=== PATIENT | male | born 1945 | race Caucasian/White ===

== ENCOUNTER 2017-02-26 11:50 | Inpatient (IN) ==
--- NOTE | 2017-02-26 14:07 | Diag Imaging Result Doc PS360 ---
EXAM: CHEST-1 VIEW HISTORY: weakness TECHNIQUE: COMPARISON: 09/15/2013. FINDINGS: There are sternal wires on the current exam. The right hemidiaphragm is elevated. The heart is not enlarged. The vessels are not distended. No pleural effusions identified. No pneumonia. IMPRESSION: Negative exam. Electronically signed by Elian Wade 02/26/2017 2:05 PM
--- NOTE | 2017-02-26 14:17 | PROVIDER DOCUMENTATION ---
This chart was entered by Alexandra Powell Scribe, acting as scribe for Lsis Bell MD. HPI-General Adult - General Chief Complaint: General Adult Stated Complaint: RECHECK Time Seen by Provider: 02/26/17 12:06 Source: patient, family () Allergies/Adverse Reactions: Patient Allergies Allergy/AdvReac Type Severity Reaction Status Date / Time Corticosteroids Allergy Intermediate increase Verified 01/15/17 08:03 (Glucocorticoids) pressure in eyes Home Medications: Home Medication List Medication Instructions Recorded Confirmed Last Taken Type Trazodone [Desyrel] 50 mg PO QHS 12/14/12 02/26/17 01/10/17 21:00 History Acarbose 50 mg PO TID 01/11/17 02/26/17 02/25/17 History Amlodipine Besylate/Benazepril 1 each PO DAILY 01/11/17 02/26/17 02/25/17 History [Amlodipine-Benazepril 10-40 mg] Aspirin 81 mg PO DAILY 01/11/17 01/11/17 02/25/17 History Brimonidine/Timolol Ophth Soln 1 drop BOTH EYES BID 01/11/17 02/26/17 02/26/17 09:00 History [Combigan Ophth Soln] Clopidogrel Bisulfate [Plavix] 75 mg PO DAILY 01/11/17 02/26/17 02/25/17 History Fluoxetine [Prozac] 20 mg PO DAILY 01/11/17 02/26/17 02/25/17 History Fluticasone 50 Mcg Nasal [place] 1 spray SEAN DAILY 01/11/17 02/26/17 02/25/17 History [Flonase] Gemfibrozil 600 mg PO BID 01/11/17 02/26/17 01/11/17 06:15 History Hydrochlorothiazide 25 mg PO DAILY 01/11/17 01/11/17 02/25/17 History Lorazepam [Ativan] 0.5 mg PO BID PRN 01/11/17 02/26/17 01/10/17 21:00 History Metformin [Glucophage] 1,000 mg PO BID CC #0 01/11/17 02/26/17 02/26/17 08:00 Rx Omeprazole [Prilosec] 40 mg PO DAILY 0502/26/17 02/25/17 History Phenylephrine HCl/Acetaminophn 1 each PO DAILY PRN PRN 01/11/17 01/11/17 History [Vicks Sinex Daytime Liquicap] Potassium Chloride 20 meq PO DAILY 01/11/17 01/11/17 02/25/17 History Tamsulosin HCl 0.4 mg PO QHS 01/11/17 02/26/17 01/10/17 21:00 History Amiodarone [Cordarone] 200 mg PO BID 02/26/17 02/26/17 Unknown History Hydrocodone/Acetaminophen 1 tab PO Q4H PRN PRN 02/26/17 02/26/17 Unknown History [Hydrocodon-Acetaminophen 5-325] Metoprolol Succinate 50 mg PO DAILY 02/26/17 02/26/17 Unknown History Simvastatin 20 mg PO HS 02/26/17 02/26/17 Unknown History Zolpidem Tartrate 5 mg PO HS PRN PRN 02/26/17 02/26/17 Unknown History - History of Present Illness -Gen Adult Nature of Presenting Problems: Pt is 71 y/o M presents to the ED with for rehab/[facility] request. Pt' s states Pt had open heart surgery February 14. Pt's states she took Pt home after 7 days in rehab and states she can not take care of Pt. Pt denies pain or symptoms. Location of Pain/Injury: reports: none Pain Radiation: reports: no radiation Quality of Pain: reports: none Severity: reports: mild Onset/Duration: reports: unsure Timing: reports: still present Context/Activities at Onset: reports: light activity Modifying Factors: improves with: nothing Associated Symptoms: reports: denies symptoms Similar Symptoms Previously?: Yes Recently seen or treated by another doctor?: No Review of Systems - Adult - REVIEW OF SYSTEMS - ADULT Constitutional: reports: no symptoms reported Eyes: reports: no symptoms reported Ears, Nose, Mouth & Throat: reports: no symptoms reported Cardiovascular: reports: no symptoms reported Respiratory: reports: no symptoms reported Gastrointestinal: reports: no symptoms reported Genitourinary: reports: no symptoms reported Musculoskeletal: reports: no symptoms reported Integumentary: reports: no symptoms reported Neurological: reports: no symptoms reported Psychiatric: reports: no symptoms reported Endocrine: reports: no symptoms reported Hematologic/Lymphatic: reports: no symptoms reported Allergic/Immunologic: reports: no symptoms reported All Other Systems: Reviewed and Negative Past History - Adult - PAST MEDICAL HISTORY-ADULT Review of Records: reports: Nursing Assessment Review, Medications Reviewed, Social history reviewed & non-contributory. 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) Endocrine/Immune: reports: Diabetes Other Conditions: reports: denies history - PRIOR SURGERIES/PROCEDURES Surgical/Procedure History: reports: reviewed, not pertinent - IMMUNIZATION STATUS Childhood Immunizations: See Nurse Assessment Flu Vaccine: See Nurse Assessment - FAMILY HISTORY Family History: reviewed, not pertinent - SOCIAL HISTORY Smoking: denies Substance Use: denies Physical Exam-General - PHYSICAL EXAM-ADULT Initial Vital Signs Reviewed: Yes - CONSTITUTIONAL General Appearance: appears well, alert, no apparent distress - EYES Eyes: PERRL/EOMI, pink conjunctivae - HEAD, EARS, NOSE, MOUTH & THROAT HENMT: normocephalic/atraumatic, moist mucous membranes, normal ENT inspection - NECK Neck: normal inspection - RESPIRATORY Respiratory: chest non-tender, lungs clear, normal breath sounds - CARDIOVASCULAR Cardiovascular: normal peripheral pulses, regular rate, rhythm - GASTROINTESTINAL (ABDOMEN) Abdominal Exam: normal bowel sounds, non tender, soft - LYMPHATIC Lymphatic: no adenopathy - MUSCULOSKELETAL Back Exam: normal inspection Extremity: normal range of motion, normal inspection - SKIN Integumentary: normal color, normal turgor, warm/dry - NEUROLOGIC Neurologic: grossly normal - PSYCHIATRIC Psych/Mental Status: normal mood/affect, oriented x 3 Progress - PLAN OF CARE/RESULTS Progress/Plan/Lab Results: Vital Signs - 8 hr 02/26/17 11:58 Temperature 98.6 F Pulse Rate 57 L Respiratory Rate 16 Blood Pressure 93/62 O2 Sat by Pulse Oximetry 100 Result Diagrams: 02/28/17 06:10 02/28/17 06:10 - XRAY 1 XRAY Study: Chest Impression: Normal XRAY Interpretation: negative exam - CONSULTS/PCP/HOSPITALIST Notification #1 *Consult/PCP/Hospitalist*: Dr. Mahmood Time Discussed: 13:47 Reason/Comments: Dr. Bell consults with Dr. Mahmood about Pt Consult Disposition: Admit #2 Consult: Dr. Mahmood Time Discussed: 15:47 Reason/Comments: Dr. Bell consulted with Dr. Mahmood about Pt Consult Disposition: other Departure - Departure Date of Disposition Decision: 02/26/17 Time of Disposition Decision: 13:49 DIAGNOSIS: UTI (urinary tract infection) Qualifiers: Urinary tract infection type: acute cystitis Hematuria presence: without hematuria Qualified Code(s): N30.00 - Acute cystitis without hematuria Disposition: ADMITTED INPATIENT 09 Certified Medical Emergency: Emergent Condition: Stable - Critical Care Note This patient required my direct & personal management of CC.: No This chart was documented by the indicated scribe, (Alexandra Powell Scribe) and accurately reflects the services I performed and decisions made by me, Liss Bell MD, as attested by the provider's signature.
[2017-02-26 14:49] LABS: BASO% 0.8 % (0.0-0.8); EOS% 12.3 % (0.0-10.0); HEMATOCRIT 37.1 % (42.0-52.0); HEMOGLOBIN 12.3 g/dL (14.0-18.0); IMM GRAN# 0.02 X1000 (0.0-0.04); IMM GRAN% 0.4 % (0.0-0.5); LYMPH# 0.85 X1000 (1.2-3.4); LYMPH% 17.4 % (20.5-51.1); MANUAL DIFF NEEDED? NO; MCH 31.2 PG (27-31); MCHC 33.2 g/dL (33-37); MCV 94.2 FL (81-99); MONO# 0.57 X1000 (0.11-0.59); MONO% 11.7 % (1.7-9.3); MPV 11.7 FL (7.4-10.4); NEUT% 57.4 % (42.2-75.2); PLT 282 X1000 (130-400); RBC 3.94 XMIL (4.7-6.1)
[2017-02-26 14:55] LABS: AGAP 17; ALBUMIN 3.7 g/dL (3.5-5.0); ALKALINE PHOSPHATASE 73 U/L (32-122); BUN 19 mg/dL (8-22); CHLORIDE 97 mmol/L (98-107); COSMO 273; GOT 18 U/L (10-34); GPT 10 U/L (10-44); POTASSIUM 4.1 mmol/L (3.5-5.1); SODIUM 134 mmol/L (136-145); TCO2 20 mmol/L (25-35); TOTAL BILIRUBIN 0.47 mg/dL (0.20-1.00); TOTAL PROTEIN 6.6 g/dL (6.3-8.3)
[2017-02-26 15:20] LABS: URINE MICRO REVIEW NEEDED? NO; URINE SOURCE CLEAN CATCH
[2017-02-26 15:36] LABS: BILIRUBIN URINE NEGATIVE (NEGATIVE); BLOOD URINE NEGATIVE (NEGATIVE); COLOR YELLOW; GLUCOSE URINE NEGATIVE (NEGATIVE); LEUKOCYTES URINE MODERATE (NEGATIVE); NITRITE URINE NEGATIVE (NEGATIVE); PROTEIN URINE TRACE mg/dL (NEGATIVE); SP GRAVITY URINE 1.016; TURBIDITY URINE CLEAR (CLEAR); UROBILINOGEN URINE 3 mg/dL (NORMAL)
[2017-02-26 15:37] LABS: UR EPITHELIAL CELLS <10 /HPF (<10); URINE BACTERIA 4+ /HPF; URINE RBC <10 /HPF (<10); URINE WBC TNTC /HPF (<10)
[2017-02-26] MEDS ORDERED: LEVAQUIN 500 MG/D5W 500 MG/100 ML IVPB IV SCH (17:45)
--- NOTE | 2017-02-26 18:24 | HISTORY AND PHYSICAL ---
CHIEF COMPLAINT: Weakness. HISTORY OF PRESENT ILLNESS: A 71-year-old, gentleman, who recently had a CABG done. The patient went to [facility] for rehab. The patient went home yesterday. The patient claims he cannot take care of himself. He was not able to read well, he was feeling weak and cannot read his medication and cannot take his medication right away and his sister cannot help. The patient had some chills, urinary frequency, dysuria, and weakness. The patient came to the emergency room. Evaluated by ER physician. Workup in the ER. His urinalysis did reveal significant UTI. He had 4+ bacteria, too numerous to count WBC, and moderate leukocyte. The patient was symptomatic and we decided to admit the patient for further care. The patient's blood pressure was low. He also wanted to consider going back to the rehab. The patient denied any typical chest pain. Occasional chest soreness. He did have chills but no high-grade fever. The patient does have a problem with vision much more. 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 No runny nose, stuffy nose, sinus drainage. Mild scratchy throat. Mild cough. No expectoration or hemoptysis. He denied any abdominal pain, nausea, vomiting. Occasional constipation. No blood or mucus in the stool. At times, polyuria, polydipsia. Complaining of burning pain in the feet. The patient does have generalized weakness. No focal weakness. No further history available at this time. ALLERGIES: Glucocorticoids. MEDICATION: Includes: Precose, Lotrel, aspirin, Combigan eye drops, Plavix, Prozac, Flonase nose spray, Lopid, hydrochlorothiazide, Ativan, Glucophage, Prilosec, decongestant medicine, potassium, Flomax, trazodone. PAST MEDICAL HISTORY: Significant for BPH, rhinitis, gastritis and reflux disease, and IDDM, situational anxiety, hypertension, hyperlipidemia, situational depression. PERSONAL HISTORY: Single. Nonsmoker. Denied alcohol or substance abuse. FAMILY HISTORY: Noncontributory. REVIEW OF SYSTEMS: As per HPI. PHYSICAL EXAMINATION: GENERAL: Middle-aged white gentleman in no acute distress. VITAL SIGNS: Blood pressure 100/63, pulse 62, respiration 26, temperature 98.6 degrees. SKIN: Normal turgor. No rash or petechiae. HEENT: Head atraumatic, normocephalic. [place] conjunctivae. Anicteric sclerae. Extraocular muscle movement normal. Fundus cannot be penetrated. Good oral hygiene. No tonsillopharyngeal congestion or exudate. Ears and nose benign. NECK: Supple. No JVD, thyromegaly or lymphadenopathy. CHEST: Bilateral good air entry present. Bibasilar crepitation. Occasional wheezing. CARDIOVASCULAR: S1 and S2 heard. No gallop or thrill. ABDOMEN: Soft, globular. Bowel sounds present. No organomegaly or mass. EXTREMITIES: No cyanosis, clubbing. No acute DVT. RN ON SITE: Alert, awake, able to move all 4 limbs. Wound of recent CABG is healing well. LAB DATA: Hemoglobin 12.3, hematocrit 37.1, WBC count 4.88, platelet count 282,000. Electrolytes were fairly benign. Urinalysis results reviewed. PLAN: Admit the patient. IV fluid. IV antibiotics. Symptomatic care. Close observation. Fall precaution. Continue home medicine. DVT and GI prophylaxis. Overall plan discussed with the patient and he is in agreement. cc: Adrien Mahmood MD
[2017-02-26] MEDS: NS + KCL 20 MEQ 1,000 ML IV SCH (19:08)
[2017-02-26] MEDS: CORDARONE PO SCH (20:59)
[2017-02-26] MEDS: NORCO-5 PO PRN (20:59)
[2017-02-26] MEDS: FLOMAX PO SCH (21:00)
[2017-02-26] MEDS: LOPID PO SCH (21:00)
[2017-02-26] MEDS: DESYREL PO SCH (21:00)
[2017-02-26] MEDS: AMBIEN PO PRN (21:00)
[2017-02-26] MEDS: ZOCOR PO SCH (21:00)
[2017-02-26] MEDS: TYLENOL PO PRN (21:37)
[2017-02-26] MEDS: COMBIGAN OPHTH SOLN BOTH EYES SCH (23:18)
[2017-02-27] MEDS: LOVENOX SUBQ SCH (06:12)
[2017-02-27] MEDS: NS + KCL 20 MEQ 1,000 ML IV SCH ×2 (06:12→20:21)
[2017-02-27] MEDS: NORCO-5 PO PRN ×2 (06:15→20:27)
[2017-02-27] MEDS ORDERED: PRILOSEC PO SCH (07:00)
[2017-02-27] MEDS: CORDARONE PO SCH ×2 (08:38→20:21)
[2017-02-27] MEDS: LOTENSIN PO SCH (08:38)
[2017-02-27] MEDS: NORVASC PO SCH (08:38)
[2017-02-27] MEDS: LOPID PO SCH ×2 (08:38→20:21)
[2017-02-27] MEDS: TOPROL XL PO SCH (08:38)
[2017-02-27] MEDS: PROZAC PO SCH (08:38)
[2017-02-27] MEDS: PLAVIX PO SCH (08:38)
[2017-02-27] MEDS: GLUCOPHAGE PO SCH ×2 (08:38→18:57)
[2017-02-27] MEDS: COMBIGAN OPHTH SOLN BOTH EYES SCH ×2 (08:39→20:22)
[2017-02-27] MEDS: FLONASE NAS SCH (08:39)
[2017-02-27] MEDS: PRECOSE PO SCH ×3 (08:39→18:57)
[2017-02-27] MEDS: ROCEPHIN 1 GM/NS 1 GM/50 ML IVPB IV SCH (10:50)
--- NOTE | 2017-02-27 11:14 | PROGRESS NOTE ---
DATE: 02/27/2017 SUBJECTIVE: Mr. Perry is feeling better. He denied any fever, chills. Dysuria is improving. No nausea or vomiting. No high-grade fever or chills. Weakness is also improving. Patient admitted with weakness, dysuria. Patient claims he was not able to take care of his medicine at home. He and his sister had difficulty managing his Accu-Chek, blood pressure, and heart rate. OBJECTIVE: Vital Signs: Noted. Neck: Supple. No JVD. Lungs: Bilateral good air entry present. Cardiovascular: S1 and S2 heard. Abdomen: Soft, globular. Bowel sounds present. Extremities: No cyanosis, clubbing. No acute DVT. [employer] SALESPERSON: Alert, awake. Able to move all 4 limbs. CONSIDERATION: 1. Urinary tract infection. Urine culture result is pending. I am going to stop Levaquin because of multiple drug interactions between amiodarone and Prozac. Will try Rocephin. We will change [place] to q.8 hours. Patient wants to consider going back to rehab and will do social service consult. 2. Hypertension, doing well. 3. Noninsulin-dependent diabetes mellitus. On metformin. PLAN: I am going to recheck it appropriate labs tomorrow. If clinical condition permits, the patient should be ready to be discharged to rehab tomorrow. cc: MD Tolu Elizabeth MD
[2017-02-27] MEDS: FLOMAX PO SCH (20:21)
[2017-02-27] MEDS: ZOCOR PO SCH (20:21)
[2017-02-27] MEDS: DESYREL PO SCH (20:21)
[2017-02-27] MEDS: ATIVAN PO PRN (20:23)
[2017-02-27] MEDS ORDERED: AYR NASAL SPRAY NAS PRN ×2 (21:39→21:51)
[2017-02-27] MEDS: TYLENOL PO PRN (22:31)
[2017-02-28] MEDS: NORCO-5 PO PRN ×2 (05:25→19:58)
[2017-02-28] MEDS: LOVENOX SUBQ SCH (05:26)
[2017-02-28 06:27] LABS: MANUAL DIFF NEEDED? NO
[2017-02-28 06:31] LABS: BASO% 0.7 % (0.0-0.8); EOS# 0.22 X1000 (0.0-0.7); HEMATOCRIT 35.5 % (42.0-52.0); HEMOGLOBIN 11.5 g/dL (14.0-18.0); LYMPH% 22.9 % (20.5-51.1); MCH 31.1 PG (27-31); MCHC 32.4 g/dL (33-37); MCV 95.9 FL (81-99); MONO# 0.64 X1000 (0.11-0.59); MONO% 14.6 % (1.7-9.3); MPV 11.2 FL (7.4-10.4); NEUT% 56.8 % (42.2-75.2); PLT 259 X1000 (130-400)
[2017-02-28 07:06] LABS: AGAP 11; ALBUMIN 3.3 g/dL (3.5-5.0); ALKALINE PHOSPHATASE 69 U/L (32-122); BUN 16 mg/dL (8-22); CALCIUM 8.9 mg/dL (8.8-10.2); CHLORIDE 103 mmol/L (98-107); COSMO 282; GOT 13 U/L (10-34); GPT 9 U/L (10-44); MAGNESIUM 1.6 mg/dL (1.5-2.7); POTASSIUM 4.9 mmol/L (3.5-5.1); SODIUM 140 mmol/L (136-145); TCO2 26 mmol/L (25-35); TOTAL BILIRUBIN 0.29 mg/dL (0.20-1.00); TOTAL PROTEIN 6.5 g/dL (6.3-8.3)
[2017-02-28] MEDS: GLUCOPHAGE PO SCH ×2 (08:41→19:00)
[2017-02-28] MEDS: NORVASC PO SCH (08:41)
[2017-02-28] MEDS: PRECOSE PO SCH ×3 (08:41→19:00)
[2017-02-28] MEDS: PLAVIX PO SCH (08:41)
[2017-02-28] MEDS: PROZAC PO SCH (08:42)
[2017-02-28] MEDS: CORDARONE PO SCH ×2 (08:42→20:30)
[2017-02-28] MEDS: LOTENSIN PO SCH (08:42)
[2017-02-28] MEDS: LOPID PO SCH ×2 (08:42→20:30)
[2017-02-28] MEDS: COMBIGAN OPHTH SOLN BOTH EYES SCH ×2 (08:42→20:28)
[2017-02-28] MEDS: FLONASE NAS SCH (08:42)
[2017-02-28] MEDS: TOPROL XL PO SCH (08:42)
[2017-02-28] MEDS: ROCEPHIN 1 GM/NS 1 GM/50 ML IVPB IV SCH (09:30)
--- NOTE | 2017-02-28 10:43 | EKG Report ---
Test Performed on : 02/26/2017 6:24:39 PM Test Reason : CP Blood Pressure : / mmHG Vent. Rate : 062 BPM Atrial Rate : 062 BPM P-R Int : 206 ms QRS Dur : 086 ms QT Int : 474 ms P-R-T Axes : 053 034 082 degrees QTc Int : 481 ms Normal sinus rhythm. T wave abnormality, consider anterior ischemia Abnormal ECG When compared with ECG of 11-JAN-2017 07:48, T wave inversion now evident in Anterior leads Confirmed by Jimi Jacques MD ([id number]) on 03/01/2017 12:25:32 PM
[2017-02-28] MEDS: ZOCOR PO SCH (20:29)
[2017-02-28] MEDS: FLOMAX PO SCH (20:30)
[2017-02-28] MEDS: DESYREL PO SCH (20:30)
[2017-02-28] MEDS: AMBIEN PO PRN (20:41)
[2017-02-28] MEDS: ATIVAN PO PRN (20:41)
--- NOTE | 2017-03-01 04:07 | PROGRESS NOTE ---
DATE: 02/28/2017 Level 3 documentation. SUBJECTIVE: This is a 71-year-old, white gentleman admitted to the hospital basically for postop bypass surgery and extreme weakness, unable to do activities of daily living, and UTI symptoms. Patient was admitted by Dr. Mahmood on 02/26/2017. REVIEW OF SYSTEMS: HEENT: No headache. No vision problem. No earache. No sore throat. Neck: No goiter. No lymphadenopathy. No bruit. Cardiopulmonary: No chest pain, shortness of breath, PND, orthopnea. GI: No nausea, vomiting, abdominal pain. : History of dysuria, hesitancy. Extremities: No swelling of legs. No joint pain. Neurologic: No focal symptoms or weakness. Past medical history, past surgical history, medicines were reviewed. PHYSICAL EXAMINATION: Vital Signs: He is afebrile, heart rate is 58, blood pressure is 117/62, pulse oximetry 93% on room air. Is and Os are even. HEENT Examination: Within normal limits. Neck: Supple. No lymphadenopathy. No goiter. Chest: Bilateral air entry. No rales, no wheezing. Heart: Heart sounds are regular. Abdomen: Belly is soft, nontender. Good bowel sounds. Extremities: No peripheral edema or cyanosis. Neurological: No obvious neurological deficits. INVESTIGATIONS: CBC: White cell count 4.3, hematocrit 35, platelets 259,000. SMA 7: Sodium 140, potassium 4.9, chloride 103, BUN 16, creatinine 1.1, glucose 130, calcium 8.9. LFTs were normal. Urinalysis is positive for infection. Microbiology was not done. Chest x-ray was stable. EKG: Normal sinus and T-wave inversions in the anterior precordial leads. ASSESSMENT AND PLAN: 1. Altered mental status due to metabolic encephalopathy, improving. 2. Coronary artery disease, status post bypass surgery two weeks ago. Continue on secondary prevention with Plavix 75 mg daily, on metoprolol. 3. Deep venous thrombosis prophylaxis with Lovenox. 4. Reactive depression, on Prozac. 5. Hyperlipidemia, on Zocor. 6. Hypertension, on Norvasc on Lotensin. 7. Glaucoma, on Combigan drops. 8. Type 2 diabetes, on metformin. 9. Benign prostatic hypertrophy, on Flomax. 10. Chronic insomnia, on trazodone, Ambien. 11. Urinary tract infection, currently on intravenous ceftriaxone. Follow up on culture and sensitivity. 12. Paroxysmal atrial fibrillation, currently in sinus, on Cordarone. 13. Reconcile home medications. Check the A1c, lipid panel in the morning. Inpatient physical therapy. DISPOSITION: Patient wants to go for rehab for 21 days. We will follow up. cc: Tolu Loja MD
[2017-03-01] MEDS: LOVENOX SUBQ SCH (06:14)
[2017-03-01 07:28] LABS: HDL 19 mg/dL (35-55); LDL 47 mg/dL; TRIGLYCERIDES 211 mg/dL (39-160); VLDL 42 mg/dL
[2017-03-01 07:29] LABS: HEMOGLOBIN A1C 5.9 % (4.8-6.0)
[2017-03-01] MEDS: PROZAC PO SCH (09:09)
[2017-03-01] MEDS: PRECOSE PO SCH ×3 (09:09→17:26)
[2017-03-01] MEDS: GLUCOPHAGE PO SCH ×2 (09:09→17:26)
[2017-03-01] MEDS: NORVASC PO SCH (09:09)
[2017-03-01] MEDS: PLAVIX PO SCH (09:09)
[2017-03-01] MEDS: LOPID PO SCH ×2 (09:09→21:33)
[2017-03-01] MEDS: CORDARONE PO SCH ×2 (09:09→21:33)
[2017-03-01] MEDS: TOPROL XL PO SCH (09:09)
[2017-03-01] MEDS: LOTENSIN PO SCH (09:10)
[2017-03-01] MEDS: FLONASE NAS SCH (09:10)
[2017-03-01] MEDS: COMBIGAN OPHTH SOLN BOTH EYES SCH ×2 (09:10→21:32)
[2017-03-01] MEDS: ROCEPHIN 1 GM/NS 1 GM/50 ML IVPB IV SCH (09:11)
--- NOTE | 2017-03-01 11:16 | Diag Imaging Result Doc PS360 ---
EXAM: US RENAL 2 (RETROPER) COMPLETE HISTORY: fausto/arf TECHNIQUE: Renal ultrasound, transabdominal with renal arterial Doppler. COMMENT: There is no evidence of solid mass. There is a resistive index of 0.69 on the left and 0.78 on the right. The collecting system on the right is slightly distended. Both kidneys are hyperechoic the right measuring 12.9 x 4.4 x 5.3 cm the left 12.8 x 5.3 x 6.6 cm. There are multiple right renal cysts the largest of which is 4.1 cm in the upper pole. The bladder is not distended. The prostate bulges into the base of the bladder measuring 3.5 x 6 x 2.9 cm. There are no previous ultrasonographic studies. The renal stones and right hydronephrosis which was present on the CT of 07/27/2010 are not demonstrated. IMPRESSION: Probable medical renal disease. Possibility of mild obstructive changes on the right cannot be excluded, however the hydronephrosis which was present on the previous CT was much more severe. Electronically signed by Poli Ha 03/01/2017 11:13 AM
[2017-03-01] MEDS: NORCO-5 PO PRN (15:17)
[2017-03-01] MEDS: TYLENOL PO PRN (19:33)
[2017-03-01] MEDS: DESYREL PO SCH (21:33)
[2017-03-01] MEDS: ZOCOR PO SCH (21:33)
[2017-03-01] MEDS: FLOMAX PO SCH (21:33)
[2017-03-01] MEDS: AMBIEN PO PRN (21:50)
[2017-03-01] MEDS: ATIVAN PO PRN (21:50)
--- NOTE | 2017-03-01 22:28 | PROGRESS NOTE ---
DATE: 03/01/2017 SUBJECTIVE: Patient is a little better. Continue on antibiotics. Urine cultures not obtained. He has history of kidney stones in the past. REVIEW OF SYSTEMS: None reported. Discussed with caregiver at bedside. PHYSICAL EXAMINATION: Vital Signs: Stable, room air 88%. HEENT: Within normal limits. Neck: Supple. Chest: Clear. Heart: Sounds are regular. Abdomen: Belly is soft, nontender. Good bowel sounds. Extremities: No peripheral edema or cyanosis. Neurologic: No obvious neurological deficits. INVESTIGATIONS: CBC: White cell count 4.3, hematocrit 35, platelets 259,000. SMA7 is normal. Creatinine is 1.1. A1c 5.9. Triglycerides 211, cholesterol 108. HDL is 19. Urinalysis positive. Cultures are pending. ASSESSMENT AND PLAN: 1. Coronary artery disease with a bypass surgery. Slowly recovering. 2. Postoperative atrial fibrillation, currently in sinus. We will discontinue Cordarone. 3. Urinary tract infection on IV ceftriaxone. We will get an ultrasound of renal to see the stones. 4. Continue secondary prevention for existing heart disease, including Plavix. A1c should be below 7. Discussed with the caregiver about placement for physical therapy. LEVEL OF DOCUMENTATION: 25 minutes. cc: Tolu Loja MD
[2017-03-02] MEDS: LOVENOX SUBQ SCH (05:51)
[2017-03-02] MEDS: FLONASE NAS SCH (09:40)
[2017-03-02] MEDS: PRECOSE PO SCH ×3 (09:41→17:24)
[2017-03-02] MEDS: COMBIGAN OPHTH SOLN BOTH EYES SCH ×2 (09:41→21:13)
[2017-03-02] MEDS: TOPROL XL PO SCH (09:41)
[2017-03-02] MEDS: NORVASC PO SCH (09:42)
[2017-03-02] MEDS: LOPID PO SCH ×2 (09:42→21:14)
[2017-03-02] MEDS: PROZAC PO SCH (09:42)
[2017-03-02] MEDS: LOTENSIN PO SCH (09:42)
[2017-03-02] MEDS: PLAVIX PO SCH (09:42)
[2017-03-02] MEDS: GLUCOPHAGE PO SCH ×2 (09:43→17:24)
[2017-03-02] MEDS: CORDARONE PO SCH ×2 (09:43→21:15)
[2017-03-02] MEDS: ROCEPHIN 1 GM/NS 1 GM/50 ML IVPB IV SCH (09:44)
[2017-03-02] MEDS ORDERED: PNEUMOVAX 23 IM ONE (21:14)
[2017-03-02] MEDS: ZOCOR PO SCH (21:14)
[2017-03-02] MEDS: ATIVAN PO PRN (21:15)
[2017-03-02] MEDS: DESYREL PO SCH (21:15)
[2017-03-02] MEDS: FLOMAX PO SCH (21:15)
[2017-03-02] MEDS: AMBIEN PO PRN (21:15)
[2017-03-02] MEDS: NORCO-5 PO PRN (21:34)
[2017-03-02] MEDS: TYLENOL PO PRN (22:46)
[2017-03-03] MEDS: LOVENOX SUBQ SCH (05:17)
--- NOTE | 2017-03-03 06:02 | PROGRESS NOTE ---
DATE: 03/02/2017 SUBJECTIVE: The patient is doing very well and no complaints. Extremely weak. REVIEW OF SYSTEMS: None reported. PHYSICAL EXAMINATION: Vital Signs: Stable. HEENT Examination: Within normal limits. Neck: Supple. Chest: Clear. Heart: Heart sounds are regular. Abdomen: Belly is soft, nontender. Good bowel sounds. No masses palpable. Extremities: No peripheral edema, cyanosis. Neurologic: No obvious neurological deficits. ASSESSMENT AND PLAN: 1. Coronary artery disease, status post bypass surgery, slowly recovering. 2. Urinary tract infection is better. Follow up on urine cultures are negative. 3. Discussed with the patient as well as social services analyst. We will send back to rehab in the morning. LEVEL OF DOCUMENTATION: 15 minutes. cc: Tolu Loja MD
[2017-03-03] MEDS: NORCO-5 PO PRN (07:52)
[2017-03-03] MEDS: PRECOSE PO SCH (07:54)
[2017-03-03] MEDS: GLUCOPHAGE PO SCH (07:54)
[2017-03-03] MEDS: COMBIGAN OPHTH SOLN BOTH EYES SCH (08:01)
[2017-03-03] MEDS: CORDARONE PO SCH (08:01)
[2017-03-03] MEDS: FLONASE NAS SCH (08:01)
[2017-03-03] MEDS: PROZAC PO SCH (08:02)
[2017-03-03] MEDS: LOTENSIN PO SCH (08:02)
[2017-03-03] MEDS: TOPROL XL PO SCH (08:02)
[2017-03-03] MEDS: LOPID PO SCH (08:02)
[2017-03-03] MEDS: PLAVIX PO SCH (08:02)
[2017-03-03] MEDS: NORVASC PO SCH (08:02)
[2017-03-03 08:56] VITALS: BP 127/57
--- NOTE | 2017-03-03 09:02 | DISCHARGE SUMMARY ---
ADMISSION DATE: 02/26/2017 DISCHARGE DATE: 03/02/2017 DISCHARGING DIAGNOSIS: Altered mental status due to metabolic encephalopathy and delirium from urinary tract infection. SECONDARY DIAGNOSES: 1. Coronary artery disease status post bypass surgery. 2. Type 2 diabetes. 3. Hypertension. 4. Acid reflux disease. 5. Glaucoma. 6. Hyperlipidemia. 7. History of kidney stones. 8. Depression with anxiety. BRIEF HISTORY: Please see the H and P that was done by Dr. Mahmood. In brief , he is a 71-year- old white gentleman, who was admitted to the hospital with altered mental status , confusion, not able to do any activities of daily living, and also urinary tract infection and dehydration. Patient was given IV fluids, IV ceftriaxone. Follow up urine cultures were negative. He has known history of kidney stone disease. Renal ultrasound was negative. Patient recently had a bypass surgery in [facility]. He was advised to continue on secondary prevention. At the request of the family, he is being transferred to rehab in a stable condition. LABS: During this admission as follows: CBC with white cell count 4.3, hematocrit 35, platelets 259. SMA 7: Sodium 140, potassium 4.9, chloride 103, BUN 11, creatinine 1.1 and glucose 130. A1c 5.9. LFTs were normal. Cholesterol 108, triglycerides 211, HDL was 19. Cultures were negative. DIAGNOSTICS: Chest x-ray: Elevation of the right hemidiaphragm, otherwise negative. Renal ultrasound: Probably medical renal disease. Mild obstructive changes on the right. No evidence of solid mass. Multiple renal cysts 4.1 cm upper pole. Enlarged prostate. DISCHARGE INSTRUCTIONS: Trazodone 50 at bedtime. Lotrel 10/40 daily. Combigan drops with 1 drop both eyes b.i.d. Ativan 0.5 b.i.d. as needed. Plavix 75 daily. Flomax 0.4 daily, Lopid 600 p.o. b.i.d., acrabose 50 p.o. t.i.d. Flonase 1 spray in nostril daily. Prilosec 40 daily. Prozac 20 daily. Aspirin 81 mg daily. Metformin 500,000 p.o. b.i.d. Metoprolol 50 daily. Ambien as needed. Simvastatin 20 daily. Discontinue Cordarone and [place]. We will initiate vaccination protocol with pneumococcal vaccine. Follow up in my office in 10 days. cc: Tolu Loja MD MTDD
[2017-03-03] MEDS: ROCEPHIN 1 GM/NS 1 GM/50 ML IVPB IV SCH (09:41)
== END 2017-03-03 10:32 ==
LOC: ED 11:50 → 3N 16:27
PROVIDERS: ADMIT Internal Medicine; ATTEND Internal Medicine